=== PATIENT | female | born 1970 ===

== ENCOUNTER 2017-10-17 18:01 | Emergency (ER) | payer OTHER ==
[2017-10-17 21:01] VITALS: BP 129/74
--- NOTE | 2017-10-17 21:29 | RAD ---
HISTORY: Fall, left ankle and left lower leg pain COMPARISONS: None VIEWS: 5, Frontal, lateral, and oblique views of the left ankle with frontal and lateral views of the left foreleg FINDINGS: BONE DENSITY: Normal. BONES: There is no displaced fracture. JOINTS: There is no arthropathy. ALIGNMENT: There is no dislocation. SOFT TISSUES: Unremarkable. OTHER FINDINGS: None. IMPRESSION: NO ACUTE OSSEOUS INJURY TO THE LEFT ANKLE OR FORELEG. IF SYMPTOMS PERSIST, RECOMMEND REPEAT IMAGING.
--- NOTE | 2017-10-17 21:33 | UC ---
Lower Extremity/Ankle HPI - HPI Summary HPI Summary: Pt states this morning was walking dog, slipped and everted her left ankle. Pt wrapped and went to work. Pt reports persistent pain with walking since. No strike head, no loc. No blooe HEENt. no neck or back painl No paresthesia. No edema. No analgesia taken. No ice applied. Pt reports intermittently pain "shoots" up left lateral ankle No knee pain pt's medications reviewed this visit - History of Current Complaint Chief Complaint: UCLowerExtremity Stated Complaint: LEFT ANKLE COMPLAINT Time Seen by Provider: 10/17/17 21:27 Hx Obtained From: Patient Hx Last Menstrual Period: 10/12/17 Onset/Duration: Sudden Onset Severity Initially: Mild Severity Currently: Moderate Pain Intensity: 5 Pain Scale Used: 0-10 Numeric Alleviating Factor(s): Other - laith wrap Able to Bear Weight: Yes - Allergies/Home Medications Allergies/Adverse Reactions: Allergies Allergy/AdvReac Type Severity Reaction Status Date / Time No Known Allergies Allergy Verified 10/17/17 20:52 PMH/Surg Hx/FS Hx/Imm Hx Previously Healthy: Yes - Surgical History Surgical History: Yes Surgery Procedure, Year, and Place: c-sect x2, right knee, nose. RIGHT HIP SX X 2--02/2016, 02/2017 - Family History Known Family History: Positive: None - Social History Occupation: Employed Full-time Lives: With Family Alcohol Use: Rare Substance Use Type: None Smoking Status (MU): Former Smoker When Did the Patient Quit Smoking/Using Tobacco: january 2014 Review of Systems Constitutional: Negative Motor: Other - pain left ankle Musculoskeletal: Negative Neurological: Negative Psychological: Negative All Other Systems Reviewed And Are Negative: Yes Physical Exam Triage Information Reviewed: Yes Appearance: Well-Appearing, No Pain Distress, Well-Nourished Vital Signs: Initial Vital Signs Temp 98.5 F 10/17/17 20:53 Pulse 73 10/17/17 20:53 Resp 18 10/17/17 20:53 BP 129/74 10/17/17 20:53 Pulse Ox 98 10/17/17 20:53 Vital Signs Reviewed: Yes ENT: Positive: Hearing grossly normal Neck exam: Normal Neck: Positive: Supple, Nontender, No Lymphadenopathy Respiratory: Positive: No respiratory distress, No accessory muscle use Cardiovascular: Positive: Other: - 2+ PT, 2+ DP CBt < 2 sec Musculoskeletal: Positive: Other: - + flex/ext knee + flex/ext ankle with pain latearl aspect Pain increases with eversion Pain with point palp lateral, anterior latearl malleolus no pain tarsals, metatarsal Neurological Exam: Normal Neurological: Positive: Alert, Other: - + gross sensation throughout Psychological Exam: Normal Skin Exam: Normal Diagnostics - Radiology No standard instances Radiology Interpretation Completed By: Radiologist - Food And Beverage Service Manager: NUANCE ( NUANCE) Report Date: 10/17/2017 20:58:00 Report Status: Final ====== Begin of Report Content Patient Name: JENNA ROWELL Medical Record#: [id number] Ordering Physician: Elvia Barrera MD Acct.#: [id number] : 1970 Age: 47 Sex: F Location: [facility] Exam Date: 10/17/172057 ADM Status: REG ER Order Information: ANKLE LEFT 3+VWS Accession Number: [id number] CPT: 74337 HISTORY: Fall, left ankle and left lower leg pain COMPARISONS: None VIEWS: 5, Frontal, lateral, and oblique views of the left ankle with frontal and lateral views of the left foreleg FINDINGS: BONE DENSITY: Normal. BONES: There is no displaced fracture. JOINTS: There is no arthropathy. ALIGNMENT: There is no dislocation. SOFT TISSUES: Unremarkable. OTHER FINDINGS: None. IMPRESSION: NO ACUTE OSSEOUS INJURY TO THE LEFT ANKLE OR FORELEG. IF SYMPTOMS PERSIST, RECOMMEND REPEAT IMAGING. < Electronically signed by Livan Combs MD in [place]> 10/17/172125 Dictated By: Livan Combs MD Dictated Date/Time: 10/17/172125 Transcribed Date/ Time: 10/17/172124 Copy to: Lower Extremity Course/Dx - Course Course Of Treatment: pt with left ankle pain after slip and fall this morning. pain lateral aspect of ankle. CSM intact. neg fx on imaging. laith, air splint. pt declined crutches - states has. motrin/apap. ice. elevate. pcp f /u - Differential Dx/Diagnosis Provider Diagnoses: ankle sprain Discharge - Discharge Plan Condition: Stable Disposition: HOME Patient Education Materials: Ankle Sprain (ED) Forms: *Gen. Provider Communication Referrals: Mary Mera PA [Primary Care Provider] - Additional Instructions: -Okay to alternate ibuprofen (advil, Motrin) and tylenol every 3 hours for pain. Take with food. Do NOT take for more than 4-5 days - It is recommended you use crutches until you can walk without pain or a limp - wear laith wrap and gel splint for support -Apply ice (20 min at a time) every 4 hours while awake today and tomorrow - Keep leg elevated - this will help with swelling and pain -contact your doctor tomorrow to arrange a follow-up appointment this week. Call your doctor or return with questions or concerns
== END 2017-10-17 21:56 | disposition home or self-care (01) ==
LOC: UCCORT 18:01
DX: S93.402A Sprain of unspecified ligament of left ankle, initial encounter (principal); W01.0XXA Fall on same level from slipping, tripping and stumbling without subsequent striking against object, initial encounter; Y93.K1 Activity, walking an animal; Y92.9 Unspecified place or not applicable; Z87.891 Personal history of nicotine dependence
CPT/HCPCS: 99203; G0463

== ENCOUNTER 2017-11-12 12:53 | Emergency (ER) | payer OTHER ==
[2017-11-12 13:58] VITALS: BP 138/88
--- NOTE | 2017-11-12 14:10 | UC ---
UC General HPI - HPI Summary HPI Summary: pt is c/o a 1 week hx nasal congestion, sore throat, crusty eye upon waking and R ear pain. she admits to cough as well. no fever, cp, sob or body aches. - History of Current Complaint Chief Complaint: UCGeneralIllness Stated Complaint: EAR PAIN, SORE THROAT, HEADACHE Time Seen by Provider: 11/12/17 14:04 Hx Obtained From: Patient Hx Last Menstrual Period: 11/06/17 Onset/Duration: Gradual Onset Timing: Constant Pain Intensity: 7 Aggravating: nothing Alleviating: nothing Associated Signs & Symptoms: Positive: Cough. Negative: Diarrhea, Dysuria, Fever, Headache, SOB, Vomiting, Wheezing - Allergy/Home Medications Allergies/Adverse Reactions: Allergies Allergy/AdvReac Type Severity Reaction Status Date / Time No Known Allergies Allergy Verified 11/12/17 13:55 PMH/Surg Hx/FS Hx/Imm Hx Previously Healthy: Yes - Surgical History Surgical History: Yes Surgery Procedure, Year, and Place: c-sect x2, right knee, nose. RIGHT HIP SX X 2--02/2016, 02/2017 - Family History Known Family History: Positive: None - Social History Occupation: Employed Full-time Lives: With Family Alcohol Use: Rare Substance Use Type: None Smoking Status (MU): Former Smoker When Did the Patient Quit Smoking/Using Tobacco: january 2014 - Immunization History Vaccination Up to Date: Yes Review of Systems Constitutional: Negative Skin: Negative Eyes: Drainage ENT: Sore Throat, Ear Ache - R, Nasal Discharge Respiratory: Cough Cardiovascular: Negative Gastrointestinal: Negative Genitourinary: Negative Motor: Negative Neurovascular: Negative Musculoskeletal: Negative Neurological: Negative Psychological: Negative Is Patient Immunocompromised?: No All Other Systems Reviewed And Are Negative: Yes Physical Exam Triage Information Reviewed: Yes Appearance: Well-Appearing Vital Signs: Initial Vital Signs Temp 98.4 F 11/12/17 13:53 Pulse 82 11/12/17 13:53 Resp 18 11/12/17 13:53 BP 138/88 11/12/17 13:53 Pulse Ox 98 11/12/17 13:53 Vital Signs Reviewed: Yes Eyes: Positive: Conjunctiva Clear. Negative: Conjunctiva Inflamed, Discharge ENT: Positive: Pharyngeal erythema, TMs normal - L, TM red - R, Uvula midline. Negative: Nasal congestion, Nasal drainage, Tonsillar swelling, Tonsillar exudate, Trismus, Muffled voice, Hoarse voice, Sinus tenderness Neck: Positive: Supple, No Lymphadenopathy, Tenderness @ - R peritonsilar node. Respiratory: Positive: Lungs clear, Normal breath sounds, No respiratory distress Cardiovascular: Positive: RRR, No Murmur, Pulses Normal Abdomen Description: Positive: Nontender, No Organomegaly, Soft Bowel Sounds: Positive: Present Musculoskeletal: Positive: ROM Intact Neurological: Positive: Alert Psychological: Positive: Age Appropriate Behavior Skin Exam: Normal Course/Dx - Course Course Of Treatment: pt eye exam is unremarkable thus no indication for any antibiotic eye drops; however, given duration of illness and R OM, will tx with augmentin. this will cover any potential bacterial throat and sinus infections as well. - Differential Dx - Multi-Symptom Provider Diagnoses: URI, R OM, sore throat Discharge - Discharge Plan Condition: Stable Disposition: HOME Prescriptions: Amoxicillin/Clavulanate TAB* [Augmentin TAB 875*] 875 mg PO BID 10 Days #20 tab Patient Education Materials: Ear Infection (ED), Upper Respiratory Infection ( ED) Referrals: Mary Mera PA [Primary Care Provider] - 7 Days
== END 2017-11-12 14:20 | disposition home or self-care (01) ==
LOC: UCCORT 12:53
DX: J06.9 Acute upper respiratory infection, unspecified (principal); H66.91 Otitis media, unspecified, right ear; J02.9 Acute pharyngitis, unspecified; Z87.891 Personal history of nicotine dependence
CPT/HCPCS: 99212; G0463

== ENCOUNTER 2018-02-07 15:30 | Emergency (ER) | payer OTHER ==
[2018-02-07 15:56] VITALS: BP 116/76
--- NOTE | 2018-02-07 15:57 | UC ---
UC General HPI - HPI Summary HPI Summary: pt states she had a sudden pain in her L side of back into L side of abdomen( points to L flank/back area) last pm. at onset was severe but now just feels numb. denies any fever, nausea, vomiting, diarrhea. denies any urinary s/s's. nothing makes any of it better or worse. denies hx kidney stones but both parents have then. - History of Current Complaint Stated Complaint: LEFT SIDE AND BACK PAIN/NUMBNESS Time Seen by Provider: 02/07/18 15:39 Hx Obtained From: Patient Hx Last Menstrual Period: 11/06/17 Associated Signs & Symptoms: Negative: Diarrhea, Dysuria, Fever, Nausea, Vomiting - Allergy/Home Medications Allergies/Adverse Reactions: Allergies Allergy/AdvReac Type Severity Reaction Status Date / Time No Known Allergies Allergy Verified 11/12/17 13:55 Home Medications: Home Medications Ibuprofen 800 mg PO Q8H 02/07/18 [History Confirmed 02/07/18] Meloxicam 7.5 mg PO Q8H 02/07/18 [History Confirmed 02/07/18] PMH/Surg Hx/FS Hx/Imm Hx - Additional Past Medical History Additional PMH: degenerative changes R hip - Surgical History Surgical History: Yes Surgery Procedure, Year, and Place: c-sect x2, right knee, nose. RIGHT HIP SX X 2--02/2016, 02/2017 - Family History Known Family History: Positive: Other - kidney stones - Social History Occupation: Employed Full-time Lives: With Family Alcohol Use: Rare Substance Use Type: None Smoking Status (MU): Former Smoker When Did the Patient Quit Smoking/Using Tobacco: january 2014 - Immunization History Vaccination Up to Date: Yes Review of Systems Constitutional: Negative Skin: Negative Eyes: Negative ENT: Negative Respiratory: Negative Cardiovascular: Negative Gastrointestinal: Negative Genitourinary: Negative Motor: Negative Neurovascular: Negative Musculoskeletal: Other: - L back/flank pain into L abdomen at onset Neurological: Negative Psychological: Negative Is Patient Immunocompromised?: No All Other Systems Reviewed And Are Negative: Yes Physical Exam Triage Information Reviewed: Yes Appearance: Well-Appearing Vital Signs Reviewed: Yes Eyes: Positive: Conjunctiva Clear ENT: Positive: Pharynx normal, TMs normal. Negative: Nasal congestion, Nasal drainage Neck: Positive: Supple, Nontender, No Lymphadenopathy Respiratory: Positive: Chest non-tender, Lungs clear, Normal breath sounds Cardiovascular: Positive: RRR, No Murmur, Pulses Normal Abdomen Description: Positive: Nontender, No Organomegaly, Soft. Negative: Bruit, CVA Tenderness (R), CVA Tenderness (L), Distended, Guarding Bowel Sounds: Positive: Present Musculoskeletal: Positive: Other: - neck/back have no deformity. they are non tender. both have full rom with no pain. trunk has no rash. extremities have full s/v/m functions. Neurological: Positive: Alert Psychological: Positive: Age Appropriate Behavior Skin Exam: Normal Skin: Negative: rashes Diagnostics - Radiology No standard instances Xray Interpretation: No Acute Changes Radiology Interpretation Completed By: Radiologist - non contrast CT(see full report) Course/Dx - Course Course Of Treatment: pt declining pain medication at time of exam. non toxic. no acute abdomen. no rash of shingles. back exam is unremarkable as well. u/a=1 + protein and 1+ bilirubin, both non specific. non contrast CT abd/pelvis is unremarkable. pt advised of CT result. she seemed upset and agitated. she c/o pain but continues to declined tx. I suggested an ER Transfer for additional evaluation and tx but pt refused citing "i will just suffer instead". pt encouraged to f/u pcp tomorrow and go to Er is she changes her mind. - Differential Dx - Multi-Symptom Provider Diagnoses: acute pain L back/flank into L upper abdomen Discharge - Sign-Out/Discharge Documenting (check all that apply): Discharge/Admit/Transfer - Discharge Plan Condition: Stable Disposition: HOME Patient Education Materials: Acute Abdominal Pain (ED) Referrals: Mary Mera PA [Primary Care Provider] - 1 Day - Billing Disposition and Condition Condition: STABLE Disposition: HOME
--- NOTE | 2018-02-07 16:54 | RAD ---
CLINICAL HISTORY: Sudden back pain, left flank pain COMPARISON: None TECHNIQUE: Multiple contiguous axial CT scans were obtained of the abdomen and pelvis, without intravenous contrast enhancement. Coronal and sagittal multiplanar reformations are submitted for review. Oral contrast was not administered. FINDINGS: The study is limited by the lack of intravenous contrast. This limits evaluation of the solid organs and vasculature. LUNG BASES: The lung bases are clear. LIVER: The liver is normal in shape, size, contour, and attenuation. BILE DUCTS: There is no intrahepatic or extrahepatic biliary dilatation. GALLBLADDER: The gallbladder is incompletely distended but is grossly normal PANCREAS: The pancreas is normal, without mass or ductal dilatation. SPLEEN: Normal in size and appearance. UPPER GI TRACT: Evaluation of the gastrointestinal tract is limited by incomplete gastric distention. The upper GI tract is unremarkable. SMALL BOWEL AND MESENTERY: The small bowel is normal in contour, course, and caliber. There is no obstruction or dilatation. COLON: The colon is normal in contour, course, caliber. There is no pericolonic inflammatory change. There is a tubular, vermiform, hollow viscus that is blind ending, and originates from the cecum, consistent with a normal appendix. There is no periappendiceal inflammatory change. ADRENALS: Normal bilaterally. KIDNEYS: The kidneys are normal in shape, size, contour, and axis. There is no hydronephrosis or nephrolithiasis. BLADDER: The bladder is incompletely distended but is grossly normal. PELVIC ORGANS: The uterus and adnexa are grossly normal for technique. AORTA: There is mild calcific atherosclerotic disease of the abdominal aorta and its branches, without aneurysmal dilatation IVC: Unremarkable LYMPH NODES: There is no lymphadenopathy by size criteria. ABDOMINAL WALL: There is no evidence for abdominal wall hernia. BONES AND SOFT TISSUES: There are mild diffuse degenerative changes. OTHER: None IMPRESSION: NO HYDRONEPHROSIS OR NEPHROLITHIASIS.
== END 2018-02-07 17:34 | disposition home or self-care (01) ==
LOC: UCCORT 15:30
DX: M54.9 Dorsalgia, unspecified (principal); R10.12 Left upper quadrant pain; Z84.2 Family history of other diseases of the genitourinary system; Z87.891 Personal history of nicotine dependence
CPT/HCPCS: 74176; 81003; 99211; G0463